=== PATIENT | male | born 1995 ===

== ENCOUNTER 2022-01-28 19:18 | Emergency (ER) | payer OTHER ==
[~2022-01-28] VITALS: Ht 180.3 cm; Wt 102.3 kg
[2022-01-28 19:55] LABS: COVID AG,FIA SOURCE NASAL SWAB
[2022-01-28 20:15] LABS: INFLUENZA TYPE B NEGATIVE FOR TYPE B (NEGATIVE)
[2022-01-28] MEDS ORDERED: ACETAMINOPHEN 500 MG TABLET PO ONE (20:15)
[2022-01-28 20:53] LABS: INFLUENZA TYPE A POSITIVE FOR TYPE A (NEGATIVE)
[2022-01-28 21:05] VITALS: BP 122/88
== END 2022-01-28 21:15 | disposition home or self-care (01) ==
LOC: EMS 19:18
DX: J10.1 Influenza due to other identified influenza virus with other respiratory manifestations (principal); Z20.822 Contact with and (suspected) exposure to COVID-19
CPT/HCPCS: 87804; 99283